=== PATIENT | male | born 1935 | race Caucasian/White ===

== ENCOUNTER 2025-06-26 09:18 | Emergency (ER) | payer MEDICARE, SELFPAY ==
[2025-06-26] VITALS (48 sets, daily range): BP systolic 99–140; BP diastolic 61–87; PULSE 94–127; TEMP 36.9; O2SAT 95–100; BMI 22.2
--- NOTE | 2025-06-26 09:33 | XR_ITS ---
[place] [id number] Patient Name: JOSE RAFAEL LANGE MRN: [id number] date: 1935 Sex: M Assigned Patient Location: ER Current Patient Location: ED.MAIN Accession/Order Number: [id number] Exam Date: 06/26/2025 10:00 Report Date: 06/26/2025 10:15 At the request of: SALINA BURGOS MD Procedure: XR chest 1V PORTABLE AP ERECT CHEST 0924 hours CLINICAL HISTORY: Shortness of breath COMPARISON: 07/28/2018 A moderate size left pleural effusion is present. Underlying consolidation is not excluded. There is also airspace opacity at the right base. No pneumothorax is seen. The visualized portions the cardiac and mediastinal contours are similar however the left heart border is partially obscured. The bony structures are intact. XR/XR chest 1V IMPRESSION: PARENCHYMAL CHANGES AND LEFT PLEURAL EFFUSION, DESCRIBED. Impression dictated by: Emma Poole M.D. 06/26/2025 10:15 AM Dictation Location: [place] [address] Electronically authenticated by: [id number] Y Date: 06/26/2025 10:15
--- NOTE | 2025-06-26 09:33 | ECG_ITS ---
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
[2025-06-26 09:49] LABS: SARS-CoV-2 Ag NEGATIVE (NEGATIVE)
--- OUTSIDE RECORDS SUMMARY | 2025-06-26 10:04 | XMS_ITS | Clinical Summary ---
Author Organization [facility] Healthcare Address [address] [place] [address] Care Team Providers Care Assistant Softball Coach Name Role Phone Unavailable Primary Care Provider Unavailabl e Social History Tobacco Use Types Packs/Day Years Used Date Smoking Tobacco: Never Assessed Sex and Gender Information Value Date Recorded Sex Assigned at Not on file Legal Sex Male 7:12 PM EDT Gender Identity Not on file Sexual Orientation Not on file Plan of Treatment Not on file Insurance [facility] MEDICARE ADVANTAGE
--- OUTSIDE RECORDS SUMMARY | 2025-06-26 10:04 | XMS_ITS | Clinical Summary ---
Author Organization [employer] tem Address [id number] [address] [place] [address] Care Team Providers Care Winding Inspector And Tester Name Role Phone Tawanda Hernandez DO Primary Care Provider [phone] Allergies Active Allergy Reactions Criticality Noted Date Comments Latex Rash Low 09/13/2014 Medications aspirin-calcium carbonate 81 mg-300 mg calcium(777 mg) tablet Take 81 mg by mouth. Active atorvastatin (LIPITOR) 10 mg tablet Take 10 mg by mouth daily. Active clopidogrel (PLAVIX) 75 mg tablet Take 75 mg by mouth daily. Active finasteride (PROSCAR) 5 mg tablet Take 5 mg by mouth daily. Active metFORMIN (GLUCOPHAGE) 500 mg tablet Take 500 mg by mouth 2 (two) times a day with meals. Active raNITIdine (ZANTAC) 300 mg tablet Take 300 mg by mouth 2 (two) times a day. Active tamsulosin (FLOMAX) 0.4 mg capsule,extende d release 24hr Take 0.4 mg by mouth 2 (two) times a day. Active donepezil (ARICEPT) 5 mg tablet Take 5 mg by mouth daily. 5 9 Active tolterodine LA (DETROL LA) 4 mg 24 hr capsule Take 4 mg by mouth daily. 5 Active aspirin 81 mg Take 81 mg by mouth daily. Active triamcinolone (NASACORT) 55 mcg nasal inhaler Administer 2 sprays into each nostril nightly. Active cetirizine (ZyrTEC) 10 mg tablet Take 10 mg by mouth daily. Active CEPHalexin (KEFLEX) 500 mg capsule Take 1 capsule by mouth 3 (three) times a day. 0 Active LINZESS 145 mcg capsule Take 1 capsule by mouth daily. 9 Active Active Problems Problem Noted Date Diagnosed Date Ischemic ulcer of lower extremity 10/10/2019 Overview (10/10/2019): Added automatically from request for surgery [id number] Type 2 diabetes mellitus wit hout complication, without long-term current use of insulin 10/10/2019 Overview (10/10/2019): Added automatically from request for surgery [id number] Family History Medical History Relation Name Comments Cancer Father Diabetes Father Cancer Mother Stroke Mother Relation Name Status Comments Father Mother Social History Tobacco Use Types Packs/Day Years Used Date Smoking Tobacco: Former Smokeless Tobacco: Never Tobacco Cessation:Counseling Given: Yes Alcohol Use Standard Drinks/Week Comments No 0 (1 standard drink = 0.6 oz pur e alcohol) Childcare Answer Date Recorded Childcare Unknown 03/07/2019 Employment Answer Date Recorded Employment Unknown 03/07/2019 Purpose - Life Answer Date Recorded Purpose and direction in life Unknown Sex and Gender Information Value Date Recorded Sex Assigned at Not on file Legal Sex Male 11:55 AM EDT Gender Identity Not on file Sexual Orientation Not on file Last Filed Vital Signs Vital Sign Reading Time Taken Comments Blood Pressure 144/81 12/06/2019 10:45 AM EDT Pulse 96 12/06/2019 10:45 AM EDT Temperature 36.7 C (98.1 F) 10/16/2019 8:05 PM EST Respiratory Rate 14 10/16/2019 8:05 PM EST Oxygen Saturation 97% 10/16/2019 8:05 PM EST Inhaled Oxygen Concentration - - Weight 92.4 kg (203 lb 9.6 oz) 12/06/2019 10:44 AM EDT Height 177.8 cm (5' 10 ) 12/06/2019 10:44 AM EDT Body Mass Index 29.21 12/06/2019 10:44 AM EDT Plan of Treatment Health Maintenance Due Date Last Done Comments Depression Screening 1947 Tobacco Screening 1947 DTaP,Tdap and Td Vaccines (1 - Tdap) 1954 Zoster (Shingles) Vaccine (1 of 2) 1985 Fall Risk Screening 2000 Influenza Vaccine 05/27/2025 08/01/2014, , 11/13/2009 Medical Devices Not on file Insurance [employer] MEDICARE Care Teams Winding Inspector And Tester Relationship Specialty Start Date End Date Tawanda Hernandez DO PCP - General 02/17/17
--- OUTSIDE RECORDS SUMMARY | 2025-06-26 10:04 | XMS_ITS | Clinical Summary ---
Author Organization [facility] Address [address] [place] [address], [address] [place] [address] Care Team Providers Care Parachute Crown Sewer Name Role Phone Unavailable Primary Care Provider Unavailabl e Allergies No known active allergies Medications tamsulosin (FLOMAX) 0.4 MG capsule Take 0.4 mg by mouth 2 times daily Active aspirin 81 MG tablet Take 81 mg by mouth daily Active ranitidine (ZANTAC) 300 MG tablet Take 300 mg by mouth nightly Active atorvastatin (LIPITOR) 10 MG tablet Take 10 mg by mouth daily Active finasteride (PROSCAR) 5 MG tablet Take 5 mg by mouth nightly Active clopidogrel (PLAVIX) 75 MG tablet Take 75 mg by mouth daily Active metFORMIN (GLUCOPHAGE) 500 MG tablet Take 500 mg by mouth daily (with breakfast) Active Active Problems Problem Noted Date Diagnosed Date Nuclear sclerotic cataract of right eye 01/03/20 17 Social History Tobacco Use Types Packs/Day Years Used Date Smoking Tobacco: Never Assessed Sex and Gender Information Value Date Recorded Sex Assigned at Not on file Legal Sex Male 8:41 AM EDT Gender Identity Not on file Sexual Orientation Not on file Last Filed Vital Signs Vital Sign Reading Time Taken Comments Blood Pressure 128/65 01/03/2017 1:10 PM EDT Pulse 54 01/03/2017 1:10 PM EDT Temperature 36.2 C (97.2 F) 01/03/2017 12:41 PM EDT Respiratory Rate 18 01/03/2017 1:10 PM EDT Oxygen Saturation 96% 01/03/2017 1:10 PM EDT Inhaled Oxygen Concentration - - Weight 88.5 kg (195 lb) 01/03/2017 12:02 PM EDT Height 177.8 cm (5' 10 ) 01/03/2017 12:02 PM EDT Body Mass Index 27.98 01/03/2017 12:02 PM EDT Plan of Treatment Not on file Medical Devices Implanted Type Area Elevator Mechanic Apprentice Device Identifier Shelf Expiration Date Model / Serial / Lot Lens Iol Li61ao 14.0d - [id number] Implanted:Qty: 1 on 01/03/2017 by Misbah Lopez MD at [facility] 02/23/2021 [id number] 14.0D / [id number] / Insurance [address] [place] [address] [employer] MEDICARE Advance Directives * Full Code (Latest Code Status on File) Date Activated Date Inactivated Comments 01/03/2017 12:51 PM 01/03/2017 3:36 PM * Full Code Date Activated Date Inactivated Comments 01/03/2017 11:50 AM 01/03/2017 12:51 PM
[2025-06-26 10:08] LABS: Hematocrit 38.5 % (42.0-54.0); Hemoglobin 12.2 g/dL (14.0-18.0); Mean Corpuscular HGB Conc 31.7 g/dL (29.9-35.2); Mean Corpuscular Hemoglobin 26.0 pg (25.9-34.0); Mean Corpuscular Volume 81.9 fL (80.0-94.0); Platelet Count 348 10^3/uL (150-450); Red Blood Count 4.70 10^6/uL (4.70-6.10); White Blood Count 20.7 10^3/uL (4.0-11.0)
[2025-06-26 10:26] LABS: INR 1.28; Prothrombin Time 13.2 sec (9.0-11.6)
[2025-06-26 10:30] LABS: Lactate/Lactic Acid 2.0 mmol/L (0.4-2.0)
[2025-06-26 10:36] LABS: Alanine Aminotransferase 13 U/L (16-63); Albumin Globulin Ratio 0.5; Albumin Level 2.6 g/dL (3.4-5.0); Alkaline Phosphatase 130 U/L (46-116); Anion Gap 15.4; Aspartate Amino Transferase 14 U/L (15-37); Blood Urea Nitrogen 22.0 mg/dL (7.0-18.0); Calcium 8.8 mg/dL (8.5-10.1); Carbon Dioxide 25.7 mmol/L (21.0-32.0); Chloride 102 mmol/L (98-107); Estimated GFR (African America 52 (>=60 mL/min/1.73m^2); Estimated GFR (Non-African Ame 43 (>=60 mL/min/1.73m^2); Globulin 5.1 g/dL; Glucose 123 mg/dL (74-106); Potassium 4.1 mmol/L (3.5-5.1); Sodium 139 mmol/L (136-145); Total Protein 7.7 g/dL (6.4-8.2)
[2025-06-26 10:38] LABS: Band Neutrophils Absolute 0.2 10^3/uL (0.0-0.3); Basophils Abs Manual 0.00 10^3/uL (0.00-0.10); Basophils Percent Manual 0.0 % (0.2-2.0); Eosinophils Absolute Manual 0.00 10^3/uL (0.00-0.70); Eosinophils Percent Manual 0.0 % (0.9-7.0); Lymphocytes Absolute Manual 0.20 10^3/uL (1.20-3.80); Lymphocytes Percent Manual 1.0 % (20.5-60.0); Monocytes Absolute Manual 1.86 10^3/uL (0.30-0.80); Monocytes Percent Manual 9.0 % (1.7-12.0); Segmented Neut Absolute Manual 18.42 10^3/uL (1.4-6.5); Segmented Neutrophils % Manual 89.0 (43.0-75.0)
--- NOTE | 2025-06-26 10:40 | ED.SOB1 ---
HPI - SOB/Dyspnea General Chief Complaint: Shortness of Breath/Dyspnea Stated Complaint: WEAKNESS Time Seen by Provider: 06/26/25 09:32 Source: patient Mode of arrival: ambulance Limitations: other Limitations comment: Patient very hard of hearing History of Present Illness HPI Narrative: The patient is 89 years old male with history of hypertension and type 2 diabetes in addition to hyperlipidemia BPH and peripheral arterial disease , the patient is presenting to us after apparently other family members were sick at home and the EMS brought him here because of shortness of breath, on arrival to the patient's house apparently his heart rate was elevated presented to us with a heart rate above 120 in addition to the pulse ox was 84%, the patient had no chest pain at any time he is hard of hearing, he is complaining of shortness of breath and his daughter called the EMS because he although have a history of chronic cough , she mentioned that he was having some difficulty breathing. There is no chest pain at any time. No dizziness. No decreased p.o. intake and no diarrhea or vomiting. The patient daughter mentioned that she noticed some blood in his cough this morning. It was only a small amount that she saw on his chin Related Data Home Medications ?Medication ?Instructions ?Recorded ?Confirmed atorvastatin 10 mg tablet 10 mg PO DAILY 06/26/25 06/26/25 clopidogrel 75 mg tablet 75 mg PO DAILY 06/26/25 06/26/25 donepezil 5 mg tablet 5 mg PO DAILY 06/26/25 06/26/25 finasteride 5 mg tablet 5 mg PO DAILY 06/26/25 06/26/25 ipratropium bromide 42 mcg (0.06 2 spray intranasal QID 06/26/25 06/26/25 %) nasal spray metformin 500 mg tablet 500 mg PO BID 06/26/25 06/26/25 tamsulosin 0.4 mg capsule 0.4 mg PO BID 06/26/25 06/26/25 tolterodine 4 mg capsule,extended 4 mg PO DAILY 06/26/25 06/26/25 release 24 hr Allergies Allergy/AdvReac Type Severity Reaction Status Date / Time No Known Drug Allergies Allergy Verified 06/26/25 09:24 Review of Systems ROS Status of ROS 10 or more systems reviewed and unremarkable except as noted in history and below [facility] Medical History (Updated 06/26/25 @ 13:58 by Becki Isaac MD) Peripheral vision loss ?H53.459 - Other localized visual field defect, unspecified eye (ICD-10) History of stroke ?Z86.73 - Personal history of transient ischemic attack (TIA), and cerebral infarction without residual deficits (ICD-10) PAD (peripheral artery disease) ?I73.9 - Peripheral vascular disease, unspecified (ICD-10) Hearing loss ?H91.90 - Unspecified hearing loss, unspecified ear (ICD-10) History of diabetes mellitus ?Z86.39 - Personal history of other endocrine, nutritional and metabolic disease (ICD-10) History of arthritis ?Z87.39 - Personal history of other diseases of the musculoskeletal system and connective tissue (ICD-10) Surgical History (Updated 06/26/25 @ 12:26 by Hugo Thompson) History of bilateral knee replacement ?Z96.653 - Presence of artificial knee joint, bilateral (ICD-10) Exam Narrative Exam Narrative: Nurses notes and vital signs reviewed General: The patient appears pale and not in apparent distress Skin: Pale No rash. Head: Normocephalic, atraumatic. Neck: Supple, non-tender. Cardiovascular: Regular Rate and Rhythm without murmur, gallop or rub. Respiratory: No accessory muscle use or respiratory distress. Lungs there is decreased air entry in the bases and rhonchi heard on the left side Musculoskeletal: normal ROM, no calf or popliteal tenderness, no lower extremity edema/swelling GI: Abdomen is soft, non-distended. Normal bowel sounds. No masses appreciated. No tenderness to palpation. No rebound, guarding, or rigidity noted. Neurological: A&O x2 hard of hearing. No cranial nerve dysfunction observed. No truncal ataxia Constitutional Vital Signs, click to edit/add: Last Vital Signs Temp 98.5 F 06/26/25 09:24 Pulse 106 H 06/26/25 12:40 Resp 25 H 06/26/25 12:40 BP 140/82 06/26/25 12:30 Pulse Ox 97 06/26/25 12:40 O2 Del Method Nasal Cannula 06/26/25 10:04 O2 Flow Rate 3 06/26/25 10:04 Course Vital Signs Vital signs: Vital Signs Pulse Oximetry 98 06/26/25 09:23 Oxygen Delivery Method Nonrebreather 06/26/25 09:23 Oxygen Delivery Flow Rate 10 06/26/25 09:23 Temperature 98.5 F 06/26/25 09:24 Pulse Rate 106 H 06/26/25 12:40 Respiratory Rate 25 H 06/26/25 12:40 Blood Pressure 140/82 06/26/25 12:30 Pulse Oximetry 97 06/26/25 12:40 Oxygen Delivery Method Nasal Cannula 06/26/25 10:04 Oxygen Delivery Flow Rate 3 06/26/25 10:04 MDM - SOB/Dyspnea MDM Narrative Medical decision making narrative: Upon arrival the patient had a heart rate of 125 on the EKG with possible atrial rhythm or supraventricular rhythm No ST elevation or depression Initially the patient provided with Tylenol after he had a fever 101.3 by the EMS he also had a CBC that showed leukocytosis and the chemistry was showing mild acute kidney injury with creatinine 1.5 Lactic was 2 and the patient was started on Vanco and Zosyn after blood culture was obtained The patient initially was on nonrebreather at 10 L but he was placed on 3 L nasal cannula and we obtained an ABG that shows pO2 of 70 and there were no pH changes The patient presentation was highly suspicious for possible underlying pathology more than just pneumonia especially with the fact that the patient have a chronic cough and the fact that he was not in any significant distress compared to the fact that he was saturating 84% on room air, which correlate with possible chronicity of the situation The patient did had a COVID and flu test in the ER they are both negative CT angio of the chest showed no PE but the patient definitely have a moderate effusion with multiple infiltrate and there is some layering of the left moderate-sized effusion The patient daughter brought his [facility] and he is DNR-CCA according to the [facility] The patient case initially discussed with who requested that patient be transferred to another facility due to the fact that we do not have pulmonary critical in case the patient need drainage of the possible empyema of the left lung effusion The patient also had a his troponin initially 900 which could be secondary to the hypoxemia as well as the tachycardia with underlying coronary artery disease as well specially with the patient history of peripheral arterial disease, but that troponin went from 900-4000 and the patient was started on ACS protocol of heparin I did present to the bedside and spoke with the patient as well as his daughter and explained that the patient will need possibly a procedure at least to drain some of the fluid of the lung and study it and they were agreeable with the transfer plan for evaluation and management in [facility] Right now the patient was covered with Zosyn and vancomycin for pneumonia Heparin according to the acute coronary syndrome protocols The patient right now is stable he was accepted by Dr.Ruta Teran in [facility] awaiting bed assignment Lab Data Labs: Lab Results 06/26/25 06/26/25 06/26/25 Range/Units 09:25 09:49 10:51 WBC 20.7 H (4.0-11.0) 10^3/uL RBC 4.70 (4.70-6.10) 10^6/uL Hgb 12.2 L (14.0-18.0) g/dL Hct 38.5 L (42.0-54.0) % MCV 81.9 (80.0-94.0) fL MCH 26.0 (25.9-34.0) pg MCHC 31.7 (29.9-35.2) g/dL RDW 14.6 (11.0-15.0) % Plt Count 348 (150-450) 10^3/uL MPV 8.1 L (9.5-13.5) fL Seg Neuts % (Manual) 89.0 H (43.0-75.0) Band Neutrophils % 1.0 (0-5) % Lymphocytes % (Manual) 1.0 L (20.5-60.0) % Monocytes % (Manual) 9.0 (1.7-12.0) % Eosinophils % (Manual) 0.0 L (0.9-7.0) % Basophils % (Manual) 0.0 L (0.2-2.0) % Neutrophils # (Manual) 18.42 H (1.4-6.5) 10^3/uL Band Neutrophils # 0.2 (0.0-0.3) 10^3/uL Lymphocytes # (Manual) 0.20 L (1.20-3.80) 10^3/uL Monocytes # (Manual) 1.86 H (0.30-0.80) 10^3/uL Eosinophils # (Manual) 0.00 (0.00-0.70) 10^3/uL Basophils # (Manual) 0.00 (0.00-0.10) 10^3/uL PT 13.2 H (9.0-11.6) sec INR 1.28 APTT 27.2 (22.3-36.2) sec Puncture Site Rr ABG pH 7.429 (7.350-7.450) ABG pCO2 37.5 (35.0-45.0) mmHg ABG pO2 70.3 L (80.0-100.0) mmHg ABG HCO3 24.8 (22.0-26.0) mmol/L ABG O2 Saturation 95.0 % ABG Base Excess 0.5 (-2.0-2.0) mmol/L Sabino Test Positive (POSITIVE) O2 Liters/Min 3 Sodium 139 (136-145) mmol/L Potassium 4.1 (3.5-5.1) mmol/L Chloride 102 (98-107) mmol/L Carbon Dioxide 25.7 (21.0-32.0) mmol/L Anion Gap 15.4 BUN 22.0 H (7.0-18.0) mg/dL Creatinine 1.54 H (0.70-1.30) mg/dL Est GFR ( Amer) 52 L (>=60 mL/min/1.73m^2) Est GFR (Non-Af Amer) 43 L (>=60 mL/min/1.73m^2) BUN/Creatinine Ratio 14.3 Glucose 123 H (74-106) mg/dL Lactate 2.0 (0.4-2.0) mmol/L Calcium 8.8 (8.5-10.1) mg/dL Total Bilirubin 0.6 (0.2-1.0) mg/dL AST 14 L (15-37) U/L ALT 13 L (16-63) U/L Alkaline Phosphatase 130 H (46-116) U/L Troponin I High Sens 901.2 H* (4.0-76.1) pg/mL NT-Pro-B Natriuret Pep 4777.0 H* (<=1800.0) pg/mL Total Protein 7.7 (6.4-8.2) g/dL Albumin 2.6 L (3.4-5.0) g/dL Globulin 5.1 g/dL Albumin/Globulin Ratio 0.5 Influenza Type A Ag Negative Influenza Type B Ag Negative SARS-CoV-2 Ag (CV2AG) Negative (NEGATIVE) 06/26/25 Range/Units 12:46 WBC (4.0-11.0) 10^3/uL RBC (4.70-6.10) 10^6/uL Hgb (14.0-18.0) g/dL Hct (42.0-54.0) % MCV (80.0-94.0) fL MCH (25.9-34.0) pg MCHC (29.9-35.2) g/dL RDW (11.0-15.0) % Plt Count (150-450) 10^3/uL MPV (9.5-13.5) fL Seg Neuts % (Manual) (43.0-75.0) Band Neutrophils % (0-5) % Lymphocytes % (Manual) (20.5-60.0) % Monocytes % (Manual) (1.7-12.0) % Eosinophils % (Manual) (0.9-7.0) % Basophils % (Manual) (0.2-2.0) % Neutrophils # (Manual) (1.4-6.5) 10^3/uL Band Neutrophils # (0.0-0.3) 10^3/uL Lymphocytes # (Manual) (1.20-3.80) 10^3/uL Monocytes # (Manual) (0.30-0.80) 10^3/uL Eosinophils # (Manual) (0.00-0.70) 10^3/uL Basophils # (Manual) (0.00-0.10) 10^3/uL PT (9.0-11.6) sec INR APTT (22.3-36.2) sec Puncture Site ABG pH (7.350-7.450) ABG pCO2 (35.0-45.0) mmHg ABG pO2 (80.0-100.0) mmHg ABG HCO3 (22.0-26.0) mmol/L ABG O2 Saturation % ABG Base Excess (-2.0-2.0) mmol/L Sabino Test (POSITIVE) O2 Liters/Min Sodium (136-145) mmol/L Potassium (3.5-5.1) mmol/L Chloride (98-107) mmol/L Carbon Dioxide (21.0-32.0) mmol/L Anion Gap BUN (7.0-18.0) mg/dL Creatinine (0.70-1.30) mg/dL Est GFR ( Amer) (>=60 mL/min/1.73m^2) Est GFR (Non-Af Amer) (>=60 mL/min/1.73m^2) BUN/Creatinine Ratio Glucose (74-106) mg/dL Lactate (0.4-2.0) mmol/L Calcium (8.5-10.1) mg/dL Total Bilirubin (0.2-1.0) mg/dL AST (15-37) U/L ALT (16-63) U/L Alkaline Phosphatase (46-116) U/L Troponin I High Sens 4197.3 H* (4.0-76.1) pg/mL NT-Pro-B Natriuret Pep (<=1800.0) pg/mL Total Protein (6.4-8.2) g/dL Albumin (3.4-5.0) g/dL Globulin g/dL Albumin/Globulin Ratio Influenza Type A Ag Influenza Type B Ag SARS-CoV-2 Ag (CV2AG) (NEGATIVE) Discharge Plan Discharge Chief Complaint: Shortness of Breath/Dyspnea Clinical Impression: Pneumonia, Pleural effusion associated with pulmonary infection, Acute non-ST elevation myocardial infarction (NSTEMI) Patient Disposition: [facility] Time of Disposition Decision: 13:58
[2025-06-26] MEDS: ACETAMINOPHEN 325 MG TABLET 650 MG PO (10:47)
[2025-06-26] MEDS: PIPERACILLIN SODIUM/TAZOBACTAM 4.5 GM in 0.9 % SODIUM CHLORIDE 50 ML IV (10:49)
[2025-06-26 10:57] LABS: ABG PCO2 37.5 mmHg (35.0-45.0); Allen Test POSITIVE (POSITIVE); HCO3 ABG 24.8 mmol/L (22.0-26.0); Liters per Minute 3; O2 Mode NC; Oxygen Saturation ABG 95.0 %; PO2 ABG 70.3 mmHg (80.0-100.0); Puncture Site RR
[2025-06-26 11:03] LABS: NT Pro B Type Natriuretic Pept 4777.0 pg/mL (<=1800.0)
--- NOTE | 2025-06-26 11:18 | CT_ITS ---
The [address] [address] Patient Name: JOSE RAFAEL LANGE MRN: [id number] date: 1935 Sex: M Assigned Patient Location: ER Current Patient Location: Accession/Order Number: [id number] Exam Date: 06/26/2025 11:55 Report Date: 06/26/2025 12:29 At the request of: SALINA BURGOS MD Procedure: CT angio chest CTA CHEST WITH CONTRAST CLINICAL HISTORY: Shortness of breath. Left lung infection with hemoptysis COMPARISON: Chest x-ray 06/26/2025 TECHNIQUE: Spiral images were obtained through the chest following intravenous administration of 100 mL of Omnipaque 350. Images were reviewed using both narrow and wide window settings. Sagittal, coronal and 3 D volume-rendered reconstructions were performed and reviewed. This CT exam was performed using one or more following dose reduction techniques: Automated exposure control, adjustment of the mA and/or kV according to patient size, or use of iterative reconstruction technique. FINDINGS: The heart is top normal in size. There is no pericardial effusion. Coronary artery disease is seen. There is mild dilatation of the ascending aorta with diameter of 4.3 cm. Contrast bolus was not timed to evaluate for dissection. There is plaque at the aortic arch, descending aorta and proximal great vessels. There is adequate opacification of the pulmonary arteries however there is respiratory motion. No central emboli are identified however evaluation of some the peripheral arterial branches is slightly limited. No pathologic lymphadenopathy is seen. There are some central granulomas on the left. There is slight dextroscoliotic curvature as well as degenerative change at the spine. A moderate to large layering left pleural effusion is present. There is also a small amount of layering pleural fluid on the right. There is consolidation at the right lower lobe and a portion of the posterior lingula. Patchy airspace opacities are seen within the right middle and lower lobe. No pneumothorax is identified. There are some pleural-based calcifications bilaterally. Limited cuts through the upper abdomen show nodular adrenal limb thickening. There is additional atherosclerotic disease. There are hepatic and splenic granulomas. CT/CT angio chest IMPRESSION: NO OBVIOUS PULMONARY EMBOLISM WITHIN LIMITS OF RESPIRATORY MOTION. MILD DILATATION OF THE ASCENDING AORTA. BILATERAL PLEURAL-PARENCHYMAL CHANGES, DESCRIBED, GREATER ON THE LEFT. NO ACUTE INTRATHORACIC FINDINGS. Impression dictated by: Emma Poole M.D. 06/26/2025 12:29 PM Dictation Location: [place] [address] Electronically authenticated by: [id number] Y Date: 06/26/2025 12:29
[2025-06-26] MEDS: VANCOMYCIN HCL 1,000 MG in 0.9 % SODIUM CHLORIDE 250 ML 250 MG IV (11:29)
--- NOTE | 2025-06-26 12:56 | ECG_ITS ---
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
[2025-06-26] MEDS: HEPARIN SODIUM (PORCINE) 5,000 UNIT/ML VIAL 2700 UNIT IV (13:42)
[2025-06-26 13:44] LABS: Partial Thromboplastin Time 27.2 sec (22.3-36.2)
[2025-06-26] MEDS: HEPARIN SODIUM,PORCINE/D5W 25,000 UNIT/500 ML IV.SOLN 16 UNIT IV (13:45)
== END 2025-06-26 15:48 | disposition short-term general hospital (02) ==
PROVIDERS: Emergency Provider Emergency Medicine; PCP Family Medicine
DX: I21.4 Non-ST elevation (NSTEMI) myocardial infarction (principal); J18.9 Pneumonia, unspecified organism; R06.02 Shortness of breath; I10 Essential (primary) hypertension; E78.5 Hyperlipidemia, unspecified; N40.0 Benign prostatic hyperplasia without lower urinary tract symptoms; E11.51 Type 2 diabetes mellitus with diabetic peripheral angiopathy without gangrene; H91.90 Unspecified hearing loss, unspecified ear; Z79.84 Long term (current) use of oral hypoglycemic drugs; R50.9 Fever, unspecified; Z66 Do not resuscitate
CPT/HCPCS: 36415; 36600; 71045; 71275; 80053; 82805; 83605; 83880; 84484; 85007; 85027; 85610; 85730; 87040; 87804; 87811; 93005; 96365; 96366; 96367; 96376; 99285; J1644; J2543; J3373; Q9967

== ENCOUNTER 2025-07-08 12:52 | Outpatient (OUT) | payer MEDICARE, SELFPAY ==
--- OUTSIDE RECORDS SUMMARY | 2025-07-08 12:56 | XMS_ITS | Clinical Summary ---
Author Organization [facility] Healthcare Address [address] [place] [address] Care Team Providers Care Instructional Support Specialist Name Role Phone Unavailable Primary Care Provider Unavailabl e Social History Tobacco Use Types Packs/Day Years Used Date Smoking Tobacco: Never Assessed Sex and Gender Information Value Date Recorded Sex Assigned at Not on file Legal Sex Male 7:12 PM EDT Gender Identity Not on file Sexual Orientation Not on file Plan of Treatment Not on file Insurance [facility] MEDICARE ADVANTAGE
--- OUTSIDE RECORDS SUMMARY | 2025-07-08 12:56 | XMS_ITS | Clinical Summary ---
Author Organization [employer] Address [id number] [address] [place] [address] Care Team Providers Care Window Cutter Name Role Phone Tawanda Hernandez DO Primary Care Provider [phone] Allergies Active Allergy Reactions Criticality Noted Date [...] (10/10/2019): Added automatically from request for surgery [id number] Type 2 diabetes mellitus wit hout complication, without long-term current use of insulin 10/10/2019 Overview (10/10/2019): Added automatically from request for surgery [id number] Family History Medical History Relation Name Comments [...] on file Insurance [employer] Care Teams Window Cutter Relationship Specialty Start Date End Date Tawanda Hernandez DO PCP - General 02/17/17
--- NOTE | 2025-07-08 13:08 | XR_ITS ---
The [place] [id number] Patient Name: JOSE RAFAEL LANGE MRN: [id number] date: 1935 Sex: M Assigned Patient Location: LAB Current Patient Location: LAB Accession/Order Number: [id number] Exam Date: 07/08/2025 13:20 Report Date: 07/08/2025 17:23 At the request of: CHRISTOPHER PICKARD Procedure: XR chest 2V XR chest 2V 07/08/2025 1:37 PM SIGNS AND SYMPTOMS: ^Pneumonia, Non ST Elevation Myocardial Infraction PROTOCOL: Frontal and lateral radiographs of the chest COMPARISON: 06/26/2025 FINDINGS: The trachea is midline. The heart and mediastinal structures are within normal limits. There is a large left-sided pleural effusion. This is unchanged. Bilateral airspace opacities are noted left greater than right. Degenerative changes are noted in the shoulders and thoracic spine. Atherosclerotic changes are noted in the thoracic aorta. The bony thorax is intact. XR/XR chest 2V IMPRESSION: Similar bilateral airspace opacities are noted. There is a large left-sided pleural effusion which is unchanged. Impression dictated by: Jet Smith M.D. 07/08/2025 5:23 PM Dictation Location: [place] [address] Electronically authenticated by: [id number] Y Date: 07/08/2025 17:23
[2025-07-08 14:30] LABS: Anion Gap 12.5; Blood Urea Nitrogen 24.0 mg/dL (7.0-18.0); Calcium 9.0 mg/dL (8.5-10.1); Carbon Dioxide 29.1 mmol/L (21.0-32.0); Chloride 100 mmol/L (98-107); Estimated GFR (African America 51 (>=60 mL/min/1.73m^2); Estimated GFR (Non-African Ame 42 (>=60 mL/min/1.73m^2); Glucose 174 mg/dL (74-106); Potassium 4.6 mmol/L (3.5-5.1); Sodium 137 mmol/L (136-145)
== END 2025-07-08 12:53 | disposition home or self-care (01) ==
LOC: LAB 12:55
PROVIDERS: PCP Family Medicine; Visit Provider Family Medicine
DX: I21.4 Non-ST elevation (NSTEMI) myocardial infarction (principal); E87.6 Hypokalemia; J18.9 Pneumonia, unspecified organism; F03.90 Unspecified dementia, unspecified severity, without behavioral disturbance, psychotic disturbance, mood disturbance, and anxiety; I10 Essential (primary) hypertension; I77.9 Disorder of arteries and arterioles, unspecified; K21.9 Gastro-esophageal reflux disease without esophagitis; E11.40 Type 2 diabetes mellitus with diabetic neuropathy, unspecified; I73.9 Peripheral vascular disease, unspecified
CPT/HCPCS: 36415; 71046; 80048

== ENCOUNTER 2025-09-10 23:05 | Emergency (ER) | payer MEDICARE, SELFPAY ==
[2025-09-10] VITALS (8 sets, daily range): BP systolic 139; BP diastolic 82; PULSE 108–116; TEMP 36.7; O2SAT 88–93
--- NOTE | 2025-09-10 23:14 | ECG_ITS ---
The [facility] Test Date: 2025-09-10 Pat Name: JOSE RAFAEL LANGE Department: Room: - Gender: Male Welcome Hostess: : 1935 Requested By: [id number] Order Number: [id number] [place] MD: HERMINIO AKINS M.D. Measurements Intervals [place] Rate: 110 P: 150 KS: 232 QRS: 10 QRSD: 82 T: 6 QT: 322 QTc: 387 Interpretive Statements SINUS TACHYCARDIA 2231 First degree AV block 3434 Septal myocardial infarction, age undetermined [address] depression 9150 abnormal ECG Compared to ECG 06/26/2025 13:02:50 Myocardial infarct finding now present ST (T wave) deviation now present Electronically Signed On 09-11-2025 20:53:16 EST by HERMINIO AKINS M.D.
--- NOTE | 2025-09-10 23:14 | XR_ITS ---
The [address] [address] Patient Name: JOSE RAFAEL LANGE MRN: [id number] date: 1935 Sex: M Assigned Patient Location: ER Current Patient Location: ED.MAIN Accession/Order Number: [id number] Exam Date: 09/10/2025 23:20 Report Date: 09/10/2025 23:38 At the request of: VU COLE MD Procedure: XR chest 1V XR chest 1V 09/10/2025 11:31 PM SIGNS AND SYMPTOMS: ^short of breath PROTOCOL: Frontal radiograph of the chest COMPARISON: 07/08/2025 FINDINGS: The trachea is midline. The heart and mediastinal structures are within normal limits. Bilateral airspace opacities are redemonstrated with a moderate to large left-sided pleural effusion similar to the prior exam. There is a dextro convex curvature of the thoracic spine. The bony thorax is intact. XR/XR chest 1V IMPRESSION: Bilateral airspace opacities are redemonstrated with a moderate to large left-sided pleural effusion similar to the prior exam. Impression dictated by: Jet Smith M.D. 09/10/2025 11:38 PM Dictation Location: [place] [address] Electronically authenticated by: [id number] Y Date: 09/10/2025 23:38
--- NOTE | 2025-09-10 23:17 | ED.SOB1 ---
HPI - SOB/Dyspnea General Chief Complaint: Shortness of Breath/Dyspnea Stated Complaint: SOB Time Seen by Provider: 09/10/25 23:08 Source: patient Mode of arrival: ambulance History of Present Illness HPI Narrative: patient presents from home short of breath. He is hard of hearing and not able to provide much history other than he felt short of breath. His daughter called [facility] because he was short of breath. she is reportedly on her way to the hospital. Will plan to obtain more history from her. Patient does deny any pain. RA pulse ox 89-90% Related Data Home Medications ?Medication ?Instructions ?Recorded ?Confirmed atorvastatin 10 mg tablet 10 mg PO DAILY 06/26/25 09/11/25 clopidogrel 75 mg tablet 75 mg PO DAILY 06/26/25 09/11/25 donepezil 5 mg tablet 5 mg PO DAILY 06/26/25 09/11/25 finasteride 5 mg tablet 5 mg PO DAILY 06/26/25 09/11/25 ipratropium bromide 42 mcg (0.06 2 spray intranasal QID 06/26/25 09/11/25 %) nasal spray metformin 500 mg tablet 500 mg PO BID 06/26/25 09/11/25 tamsulosin 0.4 mg capsule 0.4 mg PO BID 06/26/25 09/11/25 tolterodine 4 mg capsule,extended 4 mg PO DAILY 06/26/25 09/11/25 release 24 hr amlodipine 10 mg tablet 10 mg PO DAILY 09/11/25 09/11/25 Allergies Allergy/AdvReac Type Severity Reaction Status Date / Time No Known Drug Allergies Allergy Verified 06/26/25 09:24 Review of Systems ROS Status of ROS unobtainable due to mental status [facility] Medical History (Updated 09/11/25 @ 06:32 by Fabio Castellano MD) Peripheral vision loss ?H53.459 - Other localized visual field defect, unspecified eye (ICD-10) History of stroke ?Z86.73 - Personal history of transient ischemic attack (TIA), and cerebral infarction without residual deficits (ICD-10) PAD (peripheral artery disease) ?I73.9 - Peripheral vascular disease, unspecified (ICD-10) Hearing loss ?H91.90 - Unspecified hearing loss, unspecified ear (ICD-10) History of diabetes mellitus ?Z86.39 - Personal history of other endocrine, nutritional and metabolic disease (ICD-10) History of arthritis ?Z87.39 - Personal history of other diseases of the musculoskeletal system and connective tissue (ICD-10) Surgical History (Updated 06/26/25 @ 12:26 by Hugo Thompson) History of bilateral knee replacement ?Z96.653 - Presence of artificial knee joint, bilateral (ICD-10) Social History Little interest or pleasure in doing things: not at all Feeling down, depressed, or hopeless: not at all Exam Constitutional Vital Signs, click to edit/add: Last Vital Signs Temp 98.1 F 09/10/25 23:11 Pulse 102 H 09/11/25 05:20 Resp 21 H 09/11/25 05:20 BP 160/89 H 09/11/25 04:43 Pulse Ox 92 L 09/11/25 05:20 O2 Del Method BIPAP 09/11/25 03:00 O2 Flow Rate 5 09/11/25 02:52 FiO2 40 09/11/25 03:03 Common normals: average body habitus, alert and well nourished General appearance: in distress (mild resp) HENMT Common normals: normocephalic and head/scalp atraumatic Eye Common normals: EOMs intact bilaterally and conjunctivae normal Respiratory Common normals: no retractions Other: tight end expiratory sounds. No crackles or rhonchii Cardio Common normals: S1 normal heart sound and S2 normal heart sound Rate: tachycardic GI Common normals: Normal to inspection, nondistended, normoactive bowel sounds present, soft to palpation and non-tender Extremity Common normals: normal to inspection and full ROM Neuro Common normals: CN's II-XII intact bilaterally, moves all extremities and no focal motor deficits Psych Appearance: grossly normal Course Vital Signs Vital signs: Vital Signs Blood Pressure 139/82 09/10/25 23:10 Temperature 98.1 F 09/10/25 23:11 Pulse Rate 102 H 09/11/25 05:20 Respiratory Rate 21 H 09/11/25 05:20 Blood Pressure 160/89 H 09/11/25 04:43 Pulse Oximetry 92 L 09/11/25 05:20 Oxygen Delivery Method BIPAP 09/11/25 03:00 Oxygen Delivery Flow Rate 5 09/11/25 02:52 Fraction of Inspired Oxygen 40 09/11/25 03:03 MDM - SOB/Dyspnea MDM Narrative Medical decision making narrative: patient has past history of DM, NSTEMI and HTN. also past mod-lg left pleural effusion who presents from home with shortness of breath. RA pulse ox was 89-90%. He arrives with 2LNC and pulse ox 92% with mild respiratory distress. chest with diminished breath sounds. labs and cxray ordered along with Solumedrol and Albuterol NMT. Cxray redemonstrated bilat airspace opacities with mod-lg left pleural effusion similar to prior exams. Troponin returned as WNL. Patient again became short of breath. Another albuterol NMT was ordered and he was switched to bipap. This combination did work and now he is more comfortable with RR 18 and not overriding the bipap. CTA ordered due to elevated d-dimer and returned with neg findings of PE. Did demonstrate mod-large left pleural effusion, ? empyema and interstitial pulmonary edema. Clinically he does not have empyema. He is afebrile and WBC 11. He is DNRCC. Discussed with the hospitalist here at [facility] and he felt the patient would benefit from thoracentesis . I did talk to the patient but he is hard of hearing and not able to provide much history or understanding. I spoke on the phone to his daughter Cira who was the one who called [facility]. She was also interested in thoracentesis. She was informed he would need to be transferred for this procedure and she is in agreement. Hospitalist at [facility]. patient accepted in transfer Lab Data Labs: Lab Results 09/10/25 Range/Units 23:17 WBC 11.0 (4.0-11.0) 10^3/uL RBC 4.15 L (4.70-6.10) 10^6/uL Hgb 10.9 L (14.0-18.0) g/dL Hct 34.3 L (42.0-54.0) % MCV 82.7 (80.0-94.0) fL MCH 26.3 (25.9-34.0) pg MCHC 31.8 (29.9-35.2) g/dL RDW 15.5 H (11.0-15.0) % Plt Count 313 (150-450) 10^3/uL MPV 8.3 L (9.5-13.5) fL Neut % (Auto) 82.1 H (43.0-75.0) % Lymph % (Auto) 6.1 L (20.5-60.0) % [place] % (Auto) 9.4 (1.7-12.0) % Eos % (Auto) 1.3 (0.9-7.0) % Baso % (Auto) 0.6 (0.2-2.0) % Neut # (Auto) 9.1 H (1.4-6.5) 10^3/uL Lymph # (Auto) 0.7 L (1.2-3.8) 10^3/uL [place] # (Auto) 1.0 H (0.3-0.8) 10^3/uL Eos # (Auto) 0.1 (0.0-0.7) 10^3/uL Baso # (Auto) 0.1 (0.0-0.1) 10^3/uL Abs Immat Gran (auto) 0.05 H (0.00-0.03) 10^3/uL Imm/Tot Granulo (auto) 0.5 (0.0-0.5) % D-Dimer 3.34 H* (<=0.59) mg/L FEU Sodium 136 (136-145) mmol/L Potassium 4.4 (3.5-5.1) mmol/L Chloride 104 (98-107) mmol/L Carbon Dioxide 29.0 (21.0-32.0) mmol/L Anion Gap 7.4 BUN 24.0 H (7.0-18.0) mg/dL Creatinine 1.46 H (0.70-1.30) mg/dL Est GFR ( Amer) 55 L (>=60 mL/min/1.73m^2) Est GFR (Non-Af Amer) 45 L (>=60 mL/min/1.73m^2) BUN/Creatinine Ratio 16.4 Glucose 150 H (74-106) mg/dL Calcium 9.4 (8.5-10.1) mg/dL Troponin I High Sens 35.0 (4.0-76.1) pg/mL NT-Pro-B Natriuret Pep 3459.0 H* (<=1800.0) pg/mL Imaging Data Chest x-ray: Radiologist's impression: ITS Impressions Chest X-Ray 09/10/25 23:14 IMPRESSION: Bilateral airspace opacities are redemonstrated with a moderate to large left-sided pleural effusion similar to the prior exam. Impression dictated by: Jet Smith M.D. 09/10/2025 11:38 PM [facility] Electronically authenticated by: [id number] Y Date: 09/10/2025 23:38 Critical Care Time Critical Care Time Total Critical Care Time: 45 Discharge Plan Discharge Chief Complaint: Shortness of Breath/Dyspnea Clinical Impression: Pleural effusion on left, Pulmonary edema Patient Disposition: [facility]
[2025-09-10 23:26] LABS: Hematocrit 34.3 % (42.0-54.0); Hemoglobin 10.9 g/dL (14.0-18.0); Immature Granulocytes Abs Auto 0.05 10^3/uL (0.00-0.03); Immature Granulocytes Pct Auto 0.5 % (0.0-0.5); Lymphocytes Absolute Auto 0.7 10^3/uL (1.2-3.8); Mean Corpuscular HGB Conc 31.8 g/dL (29.9-35.2); Mean Corpuscular Hemoglobin 26.3 pg (25.9-34.0); Mean Corpuscular Volume 82.7 fL (80.0-94.0); Platelet Count 313 10^3/uL (150-450); Red Blood Count 4.15 10^6/uL (4.70-6.10); White Blood Count 11.0 10^3/uL (4.0-11.0)
--- OUTSIDE RECORDS SUMMARY | 2025-09-10 23:40 | XMS_ITS | Clinical Summary ---
Author Organization [facility] Address [address] [place] [address], [address] [place] [address] Care Team Providers Care Director Funeral Name Role Phone Unavailable Primary Care Provider Unavailabl e Allergies No known active allergies Medications MedicationSigDispense QuantityRefillsLast FilledStart DateEnd DateStatus tamsulosin (FLOMAX) 0.4 MG capsule Take 0.4 mg by mouth 2 times dailyActive aspirin 81 MG tablet Take 81 mg by mouth dailyActive ranitidine (ZANTAC) 300 MG tablet Take 300 mg by mouth nightlyActive atorvastatin (LIPITOR) 10 MG tablet Take 10 mg by mouth dailyActive finasteride (PROSCAR) 5 MG tablet Take 5 mg by mouth nightlyActive clopidogrel (PLAVIX) 75 MG tablet Take 75 mg by mouth dailyActive metFORMIN (GLUCOPHAGE) 500 MG tablet Take 500 mg by mouth daily (with breakfast)Active Active Problems ProblemNoted DateDiagnosed DateNuclear sclerotic cataract of right eye01/02/2017 Social History Tobacco UseTypesPacks/DayYears UsedDateSmoking Tobacco: Never AssessedSex and Gender InformationValueDate RecordedSex Assigned at BirthNot on fileLegal Sex Male12/27/2016 8:41 AM EDTGender IdentityNot on fileSexual OrientationNot on file Last Filed Vital Signs Vital SignReadingTime TakenCommentsBlood Usbldhzu112/6504 1:10 PM EDT Vviqn7620 1:10 PM TMLRdmhjpzehra63.2 ??C (97.2 ??F)01/03/2017 12:41 PM EDTRespiratory Trgs747201/03/2017 1:10 PM EDTOxygen Tvhgdbnaku92%01/03/2017 1:10 PM EDTInhaled Oxygen Concentration--Pdhfjo12.5 kg (195 lb)01/03/2017 12:02 PM ULVVmbpzz025.8 cm (5' 10 )01/03/2017 12:02 PM EDTBody Mass Index27.98001/03/2017 12:02 PM EDT Plan of Treatment Not on file Medical Devices ImplantedTypeAreaManufacturerDevice IdentifierShelf Expiration DateModel / Serial / LotLens Iol Li61ao 14.0d - [id number] Implanted:Qty: 1 on 01/03/2017 by Misbah Lopez MD at [facility]2011FI59KE 14.0D / [id number] / Insurance Advance Directives * Full Code (Latest Code Status on File) Date ActivatedDate InactivatedComments01/03/2017 12:51 PM01/03/2017 3:36 PM * Full Code Date ActivatedDate InactivatedComments01/03/2017 11:50 AM01/03/2017 12:51 PM
--- OUTSIDE RECORDS SUMMARY | 2025-09-10 23:40 | XMS_ITS | Clinical Summary ---
Author Organization [employer] Address [id number] [address] [place] [address] Care Team Providers Care Equipment Scheduler Name Role Phone Tawanda Hernandez DO Primary Care Provider [phone] Allergies Active AllergyReactionsCriticalityNoted MxdpEhjjtzzvCtqvdVgslHdb06/19/2014 Medications MedicationSigDispense QuantityRefillsLast FilledStart DateEnd DateStatus aspirin-calcium carbonate 81 mg-300 mg calcium(777 mg) tablet Take 81 mg by mouth.Active atorvastatin (LIPITOR) 10 mg tablet Take 10 [...] a day. Active tamsulosin (FLOMAX) 0.4 mg capsule,extended release 24hr Take 0.4 mg by mouth 2 (two) times a day. Active donepezil (ARICEPT) 5 mg tablet Take 5 mg by mouth daily.Active tolterodine LA (DETROL LA) 4 mg 24 hr capsule Take 4 mg by mouth daily.Active aspirin 81 mg Take 81 mg by mouth daily.Active triamcinolone (NASACORT) 55 mcg nasal inhaler Administer 2 sprays into each nostril nightly.Active cetirizine (ZyrTEC) 10 mg tablet Take 10 mg by mouth daily.Active CEPHalexin (KEFLEX) 500 mg capsule Take 1 capsule by mouth 3 (three) times a day.10/02/2019Active LINZESS 145 mcg capsule Take 1 capsule by mouth daily.09/17/2019Active Active Problems ProblemNoted DateDiagnosed DateIschemic ulcer of lower nlupkoyev71/15/2020 Overview (10/10/2019): Added automatically from request for surgery [id number] Type 2 diabetes mellitus without complication, without long-term current use of wsxqtbi8810/10/2019 Overview (10/10/2019): Added automatically from request for surgery [id number] Family History Medical HistoryRelationNameCommentsCancerFatherDiabetesFatherCancerMotherStroke MotherRelationNameStatusCommentsFatherMother Social History Tobacco UseTypesPacks/DayYears UsedDateSmoking Tobacco: FormerSmokeless Tobacco: Never Tobacco Cessation:Counseling Given: Yes Alcohol UseStandard Drinks/WeekCommentsNo0 (1 standard drink = 0.6 oz pure alcohol)ChildcareAnswerDate ZdsrilorAxuifgsggYjleptq95/12/2019EmploymentAnswer Date YwpkyyouJjdibtmxxyGsjxkmv13/12/2019Purpose - LifeAnswerDate RecordedPurpose and direction in nvwvHtpvein66/11/2021Sex and Gender InformationValueDate RecordedSex Assigned at BirthNot on fileLegal GzcPpva5905/01/2015 11:55 AM EDT Gender IdentityNot on fileSexual OrientationNot on file Last Filed Vital Signs Vital SignReadingTime TakenCommentsBlood Qujppetf932/8103 10:45 AM EDT Qjcht408912/06/2019 10:45 AM ZTCQpayfkbtqnr21.7 ??C (98.1 ??F)10/16/2019 8:05 PM ESTRespiratory Nbps062010/16/2019 8:05 PM ESTOxygen Nnmqylfcxm07%10/16/2019 8:05 PM ESTInhaled Oxygen Concentration--Bszqut05.4 kg (203 lb 9.6 oz)12/06/2019 10:44 AM SEHVqhrbo482.8 cm (5' 10 )12/06/2019 10:44 AM EDTBody Mass Index29.21 12/06/2019 10:44 AM EDT Plan of Treatment Health MaintenanceDue DateLast DoneCommentsDepression Fpxsywvnz33/23/1947Tobacco Xbidzxjjr33/23/1947DTaP,Tdap and Td Vaccines (1 - Tdap)1954Zoster (Shingles) Vaccine (1 of 2)1985Fall Risk Bemaioaws13/23/2000RSV ( or age 60+ yrs) (1 - 1-dose 75+ series)2010Influenza Nzokqei0605/27/2025 08/01/2014, 08/17/2013, 11/13/2009 Medical Devices Not on file Insurance Care Teams Team MemberRelationshipSpecialtyStart DateEnd Date Tawanda Hernandez DO [facility]02/17/17
--- OUTSIDE RECORDS SUMMARY | 2025-09-10 23:40 | XMS_ITS | Clinical Summary ---
Author Organization [facility] Address [address] [place] [address] Care Team Providers Care Accounts Payable Assistant Name Role Phone Unavailable Primary Care Provider Unavailabl e Social History Tobacco UseTypesPacks/DayYears UsedDateSmoking Tobacco: Never AssessedSex and Gender InformationValueDate RecordedSex Assigned at BirthNot on fileLegal Sex Male12/08/2022 7:12 PM EDTGender IdentityNot on fileSexual OrientationNot on file Plan of Treatment Not on file Insurance
[2025-09-10 23:49] LABS: Anion Gap 7.4; Blood Urea Nitrogen 24.0 mg/dL (7.0-18.0); Calcium 9.4 mg/dL (8.5-10.1); Carbon Dioxide 29.0 mmol/L (21.0-32.0); Chloride 104 mmol/L (98-107); Estimated GFR (African America 55 (>=60 mL/min/1.73m^2); Estimated GFR (Non-African Ame 45 (>=60 mL/min/1.73m^2); Glucose 150 mg/dL (74-106); Potassium 4.4 mmol/L (3.5-5.1); Sodium 136 mmol/L (136-145)
[2025-09-10 23:54] LABS: NT Pro B Type Natriuretic Pept 3459.0 pg/mL (<=1800.0)
[2025-09-11] VITALS (60 sets, daily range): BP systolic 138–170; BP diastolic 82–101; PULSE 91–117; RESP 16; O2SAT 85–100
[2025-09-11] MEDS: ALBUTEROL SULFATE 2.5 MG/3 ML VIAL NEB IH ×2 (00:17→02:50)
[2025-09-11] MEDS: METHYLPREDNISOLONE SOD SUCC PF 125 MG/2 ML VIAL IVP (00:24)
== END 2025-09-11 08:50 | disposition short-term general hospital (02) ==
PROVIDERS: Emergency Provider Internal Medicine; PCP Family Medicine
DX: J90 Pleural effusion, not elsewhere classified (principal); E11.9 Type 2 diabetes mellitus without complications; I25.2 Old myocardial infarction; I10 Essential (primary) hypertension; R79.89 Other specified abnormal findings of blood chemistry; Z66 Do not resuscitate; H91.90 Unspecified hearing loss, unspecified ear; J81.1 Chronic pulmonary edema; Z79.84 Long term (current) use of oral hypoglycemic drugs
CPT/HCPCS: 36415; 71045; 71275; 80048; 83880; 84484; 85025; 85378; 93005; 94640; 94660; 96374; 99285; J2919; Q9967